=== PATIENT | male | born 1965 | race Caucasian/White ===

== ENCOUNTER 2022-09-29 15:20 | Inpatient (IN) ==
[2022-09-29] MEDS ORDERED: Levalbuterol 0.63MG/3ML NEB UNIT OF USE INH ONE (15:25)
[2022-09-29] MEDS ORDERED: Levalbuterol 1.25MG/0.5ML NEB.SOL ONE (15:25)
[2022-09-29] MEDS ORDERED: Levalbuterol 1.25MG/0.5ML NEB.SOL INH ONE (15:26)
[2022-09-29] MEDS ORDERED: methylPREDNISolone SOD SUCC 125 mg 2 ML VIAL IV ONE (15:27)
[2022-09-29] MEDS ORDERED: cefTRIAXone 1 gm/50 mL D5W 1 GM/50 ML BAG IV ONE (15:33)
[2022-09-29] MEDS ORDERED: Azithromycin 500 mg/250 ml NS 500 MG/250 ML BAG IVPB ONE (15:33)
[2022-09-29 16:04] LABS: PCO2 Arterial 50 mmHg (35-45); PO2 Arterial 234 mmHg (80-100)
[2022-09-29 16:13] LABS: ABS Basophils 0.1 10^3/uL (0.0-0.1); ABS Eosinophils 0.2 10^3/uL (0.0-0.5); ABS Lymphocytes 2.9 10^3/uL (1.0-4.8); ABS Monocytes 1.3 10^3/uL (0.0-1.1); ABS Neutrophils 13.9 10^3/uL (1.5-7.6); ABS Nucleated RBC 0.01 10^3/ul; Eosinophil % 0.8 %; Lymphocyte % 15.8 %; Mean Corpuscular Hgb Conc 31.3 g/dL (31-36); Mean Corpuscular Volume 76.8 fL (80-97); Mean Platelet Volume 7.6 fL (7.5-11.2); Platelet Count 368 10^3/uL (150-450); Red Blood Count 4.17 10^6/uL (4.06-5.63); Red Cell Distribution Width 16.6 % (12-17); White Blood Count 18.3 10^3/uL (3.6-10.2)
[2022-09-29 16:35] LABS: Activated Partial Thrombo Time 31.7 seconds (26.0-38.0); INR 2.05 (0.88-1.18)
[2022-09-29] MEDS ORDERED: Furosemide 40 mg/4 ml IV VIAL IV ONE (16:42)
[2022-09-29 17:05] LABS: Albumin 3.7 g/dL (3.2-5.2); Albumin/Globulin Ratio 1.4 (1-3); C Reactive Protein 102.69 mg/L (<8.01); Calcium 8.8 mg/dL (8.6-10.3); Creatinine, Serum 0.75 mg/dL (0.67-1.17); Globulin 2.6 g/dL (2-4); Potassium 4.2 mmol/L (3.5-5.0); Total Bilirubin 0.7 mg/dL (0.2-1.0); Total Protein 6.3 g/dL (6.4-8.9)
[2022-09-29] MEDS ORDERED: Morphine 4 MG/ML VIAL (1 ml) IV ONE (17:09)
[2022-09-29] MEDS ORDERED: Iodixanol (CONTRAST) 320 MG/ML 100 ML SDV IV ONE (17:16)
[2022-09-29 17:31] LABS: High Sensitivity Troponin 1 Hr 160 pg/mL (<20)
[2022-09-29] MEDS ORDERED: oxyCODONE/Acetamin 5/325 mg TAB PO ONE (18:03)
[2022-09-29 22:47] LABS: High Sensitivity Troponin 3 Hr 474 pg/mL (<20)
[2022-09-29] MEDS ORDERED: Heparin DRIP 25,000 UNITS BAG 25,000 UNITS/500 ML BAG IV SCH (23:00)
[2022-09-29] MEDS ORDERED: Heparin 5000 UNITS/ML 1 mL VIAL IV SCH (23:00)
[2022-09-29] MEDS: methylPREDNISolone SOD SUCC 40 mg/ml 1 ml VIAL IV SCH (23:01)
[2022-09-30] MEDS: Mometasone/Formoter 200/5 MDI INH SCH ×3 (01:23→20:19)
[2022-09-30] MEDS: oxyCODONE/Acetamin 5/325 mg TAB PO PRN ×3 (04:33→21:13)
[2022-09-30 04:45] LABS: ABS Lymphocytes 0.7 10^3/uL (1.0-4.8); ABS Monocytes 0.2 10^3/uL (0.0-1.1); ABS Neutrophils 8.5 10^3/uL (1.5-7.6); Hematocrit 31.2 % (38-53); Hemoglobin 10.3 g/dL (13.2-16.3); Lymphocyte % 7.8 %; Mean Corpuscular Hemoglobin 24.7 pg (27-33); Mean Corpuscular Hgb Conc 32.9 g/dL (31-36); Mean Corpuscular Volume 75.2 fL (80-97); Mean Platelet Volume 7.2 fL (7.5-11.2); Platelet Count 256 10^3/uL (150-450); Red Blood Count 4.15 10^6/uL (4.06-5.63); Red Cell Distribution Width 17.1 % (12-17); White Blood Count 9.4 10^3/uL (3.6-10.2)
[2022-09-30] MEDS ORDERED: Metoprolol Tartrate 5 mg VIAL 5 ml VIAL (1 mg/ml) ONE (05:02)
[2022-09-30] MEDS ORDERED: Metoprolol Tartrate 5 mg VIAL 5 ml VIAL (1 mg/ml) IV ONE ×3 (05:03→19:11)
[2022-09-30 05:30] LABS: Albumin 3.8 g/dL (3.2-5.2); Albumin/Globulin Ratio 1.4 (1-3); Creatinine, Serum 0.71 mg/dL (0.67-1.17); Globulin 2.7 g/dL (2-4); Magnesium 1.8 mg/dL (1.9-2.7); Potassium 3.9 mmol/L (3.5-5.0); Total Bilirubin 0.7 mg/dL (0.2-1.0); Total Protein 6.5 g/dL (6.4-8.9); eGFR CKD-EPI 105.7 (>60)
[2022-09-30 05:45] LABS: TSH Ultra Thyroid Stim Horm 0.88 mcIU/mL (0.34-5.60)
[2022-09-30] MEDS: SPIRIVA Respimat (tiotropium) 2.5 mcg/inh Inhaler INH SCH (07:27)
[2022-09-30] MEDS ORDERED: .Amiodarone 24HR ONLY IV Protocol Order Note IV ONE (07:35)
[2022-09-30] MEDS ORDERED: Amiodarone 150 mg IVPREMIX 150 MG/100 ML BAG IV ONE (07:35)
[2022-09-30] MEDS ORDERED: Digoxin IV 0.5 MG/2 ML AMP (0.25 MG/ML) IV SLOW PU ONE ×2 (07:35→16:00)
[2022-09-30] MEDS ORDERED: Dextrose 50% Syringe 50 ml 25 GM/50 ML SYRINGE IV PUSH PRN (07:39)
[2022-09-30] MEDS ORDERED: Amiodarone 360 MG IVPREMIX 360 MG/200 ML BAG IV SCH ×2 (07:50→13:50)
[2022-09-30] MEDS: methylPREDNISolone SOD SUCC 40 mg/ml 1 ml VIAL IV SCH ×2 (08:01→15:50)
[2022-09-30] MEDS: Morphine ER 30 mg TAB ** extended release PO SCH ×2 (08:21→17:18)
[2022-09-30] MEDS ORDERED: Iodixanol (CONTRAST) 320 MG/ML 100 ML SDV IV ONE (09:09)
[2022-09-30] MEDS ORDERED: Potassium Chlor 20 meq TAB.ER PO ONE (09:19)
[2022-09-30] MEDS ORDERED: Sulfur Hexaflouride MICROSPHR 25 MG VIAL ONE (12:45)
[2022-09-30] MEDS ORDERED: Magnesium Sulfate 2 gm BAG 2 GM/50 ML BAG IVPB ONE (12:50)
[2022-09-30] MEDS ORDERED: Morphine 2 MG/ML SYRINGE IV ONE (14:55)
[2022-09-30] MEDS: cefTRIAXone 1 gm/50 mL D5W 1 GM/50 ML BAG IV SCH (17:18)
[2022-09-30] MEDS ORDERED: Amiodarone 150 mg IVPREMIX 150 MG/100 ML BAG IV SCH (18:00)
[2022-09-30] MEDS ORDERED: Amiodarone 400 mg TAB PO SCH (21:00)
[2022-10-01] MEDS: methylPREDNISolone SOD SUCC 40 mg/ml 1 ml VIAL IV SCH ×3 (00:18→17:01)
[2022-10-01] MEDS: Morphine ER 30 mg TAB ** extended release PO SCH ×3 (00:18→17:01)
[2022-10-01 05:21] LABS: ABS Basophils 0.1 10^3/uL (0.0-0.1); ABS Lymphocytes 0.7 10^3/uL (1.0-4.8); ABS Monocytes 0.4 10^3/uL (0.0-1.1); ABS Neutrophils 17.8 10^3/uL (1.5-7.6); ABS Nucleated RBC 0.01 10^3/ul; Hematocrit 29.5 % (38-53); Hemoglobin 9.6 g/dL (13.2-16.3); Lymphocyte % 3.6 %; Mean Corpuscular Hemoglobin 24.4 pg (27-33); Mean Corpuscular Hgb Conc 32.6 g/dL (31-36); Mean Corpuscular Volume 74.6 fL (80-97); Mean Platelet Volume 7.3 fL (7.5-11.2); Platelet Count 269 10^3/uL (150-450); Red Blood Count 3.95 10^6/uL (4.06-5.63); Red Cell Distribution Width 17.3 % (12-17); White Blood Count 19.1 10^3/uL (3.6-10.2)
[2022-10-01 06:15] LABS: Albumin 3.5 g/dL (3.2-5.2); Albumin/Globulin Ratio 1.4 (1-3); Creatinine, Serum 0.68 mg/dL (0.67-1.17); Globulin 2.5 g/dL (2-4); Magnesium 2.1 mg/dL (1.9-2.7); Potassium 4.3 mmol/L (3.5-5.0); Total Bilirubin 0.4 mg/dL (0.2-1.0); eGFR CKD-EPI 107.1 (>60)
[2022-10-01] MEDS: oxyCODONE/Acetamin 5/325 mg TAB PO PRN ×3 (07:27→20:25)
[2022-10-01] MEDS: Mometasone/Formoter 200/5 MDI INH SCH ×2 (08:00→20:52)
[2022-10-01] MEDS: SPIRIVA Respimat (tiotropium) 2.5 mcg/inh Inhaler INH SCH (08:00)
[2022-10-01 08:40] LABS: Digoxin 1.3 ng/ml (0.8-2.0)
[2022-10-01] MEDS: Metoprolol Tartrate 5 mg VIAL 5 ml VIAL (1 mg/ml) IV PRN ×2 (09:00→09:13)
[2022-10-01 09:01] LABS: Ferritin 204.3 ng/mL (24-336)
[2022-10-01] MEDS ORDERED: Metoprolol Tartrate 5 mg VIAL 5 ml VIAL (1 mg/ml) IV PRN (09:11)
[2022-10-01] MEDS ORDERED: Metoprolol Tartrate 5 mg VIAL 5 ml VIAL (1 mg/ml) ONE (09:27)
[2022-10-01] MEDS: cefTRIAXone 1 gm/50 mL D5W 1 GM/50 ML BAG IV SCH (17:09)
[2022-10-01 17:30] LABS: Calcium 9.3 mg/dL (8.6-10.3); Creatinine, Serum 0.7 mg/dL (0.67-1.17); Magnesium 2.1 mg/dL (1.9-2.7); Potassium 3.9 mmol/L (3.5-5.0); eGFR CKD-EPI 106.1 (>60)
[2022-10-01 18:36] LABS: High Sensitivity Troponin 1 Hr 63 pg/mL (<20)
[2022-10-02] MEDS: Morphine ER 30 mg TAB ** extended release PO SCH ×4 (00:35→16:54)
[2022-10-02] MEDS: methylPREDNISolone SOD SUCC 40 mg/ml 1 ml VIAL IV SCH ×2 (00:35→09:52)
[2022-10-02] MEDS: oxyCODONE/Acetamin 5/325 mg TAB PO PRN ×3 (05:21→20:02)
[2022-10-02 05:51] LABS: Albumin 3.8 g/dL (3.2-5.2); Calcium 9.2 mg/dL (8.6-10.3); Creatinine, Serum 0.67 mg/dL (0.67-1.17); Potassium 4.3 mmol/L (3.5-5.0); Total Protein 6.6 g/dL (6.4-8.9); eGFR CKD-EPI 107.6 (>60)
[2022-10-02 05:52] LABS: Albumin/Globulin Ratio 1.4 (1-3); Globulin 2.8 g/dL (2-4); Total Bilirubin 0.5 mg/dL (0.2-1.0)
[2022-10-02 06:16] LABS: Digoxin 1.6 ng/ml (0.8-2.0)
[2022-10-02] MEDS: SPIRIVA Respimat (tiotropium) 2.5 mcg/inh Inhaler INH SCH (07:27)
[2022-10-02] MEDS: Mometasone/Formoter 200/5 MDI INH SCH ×2 (07:27→19:10)
[2022-10-02] MEDS ORDERED: Regadenoson 0.4 MG/5 ML SYRINGE ONE (07:38)
[2022-10-02] MEDS ORDERED: Aminophylline 25 MG/ML VIAL ONE (07:38)
[2022-10-02 07:57] LABS: Hematocrit 30.6 % (38-53); Hemoglobin 9.9 g/dL (13.2-16.3); Mean Corpuscular Hemoglobin 24.1 pg (27-33); Mean Corpuscular Hgb Conc 32.4 g/dL (31-36); Mean Corpuscular Volume 74.2 fL (80-97); Mean Platelet Volume 7.2 fL (7.5-11.2); Platelet Count 295 10^3/uL (150-450); Red Blood Count 4.12 10^6/uL (4.06-5.63); Red Cell Distribution Width 17.1 % (12-17); White Blood Count 17.2 10^3/uL (3.6-10.2)
[2022-10-02 07:58] LABS: ABS Lymphocytes 0.7 10^3/uL (1.0-4.8); ABS Monocytes 0.3 10^3/uL (0.0-1.1); ABS Neutrophils 16.2 10^3/uL (1.5-7.6)
[2022-10-02] MEDS ORDERED: Propofol 10 MG/ML 20 ML BTL ONE (10:55)
[2022-10-02] MEDS ORDERED: Lidocaine 1% MPF 2 ML VIAL ONE (10:55)
[2022-10-02] MEDS: cefTRIAXone 1 gm/50 mL D5W 1 GM/50 ML BAG IV SCH (16:53)
[2022-10-03] MEDS: Morphine ER 30 mg TAB ** extended release PO SCH ×2 (00:35→08:38)
[2022-10-03 05:40] LABS: ABS Lymphocytes 0.6 10^3/uL (1.0-4.8); ABS Monocytes 0.5 10^3/uL (0.0-1.1); ABS Neutrophils 11.5 10^3/uL (1.5-7.6); ABS Nucleated RBC 0.01 10^3/ul; Hematocrit 29.7 % (38-53); Hemoglobin 9.7 g/dL (13.2-16.3); Lymphocyte % 4.8 %; Mean Corpuscular Hemoglobin 24.7 pg (27-33); Mean Corpuscular Hgb Conc 32.8 g/dL (31-36); Mean Corpuscular Volume 75.3 fL (80-97); Mean Platelet Volume 7.2 fL (7.5-11.2); Platelet Count 272 10^3/uL (150-450); Red Blood Count 3.94 10^6/uL (4.06-5.63); White Blood Count 12.6 10^3/uL (3.6-10.2)
[2022-10-03 05:57] LABS: Albumin 3.5 g/dL (3.2-5.2); Albumin/Globulin Ratio 1.4 (1-3); Calcium 8.9 mg/dL (8.6-10.3); Creatinine, Serum 0.71 mg/dL (0.67-1.17); Globulin 2.5 g/dL (2-4); Potassium 3.9 mmol/L (3.5-5.0); Total Bilirubin 0.4 mg/dL (0.2-1.0); eGFR CKD-EPI 105.7 (>60)
[2022-10-03 06:13] LABS: Digoxin 1.9 ng/ml (0.8-2.0)
[2022-10-03] MEDS ORDERED: Potassium Chlor 20 meq TAB.ER PO ONE (07:29)
[2022-10-03] MEDS: SPIRIVA Respimat (tiotropium) 2.5 mcg/inh Inhaler INH SCH (07:53)
[2022-10-03] MEDS: Mometasone/Formoter 200/5 MDI INH SCH (07:53)
[2022-10-03 12:31] VITALS: BP 134/81
== END 2022-10-03 14:35 | disposition home or self-care (01) | DRG 189 ==
LOC: ED 15:20 → EDHOLD 17:59 → ICU 18:33
PROVIDERS: ADMIT Internal Medicine; ATTEND Internal Medicine
PROC: CARDVER (ICD-10-PCS; 2022-10-02 11:15)

== ENCOUNTER 2022-12-09 17:25 | Inpatient (IN) ==
[2022-12-09] MEDS ORDERED: Albuterol 2.5mg/3 ml (0.083%) NEB.SOLN INH ONE ×2 (18:15→22:55)
[2022-12-09 19:36] LABS: ABS Basophils 0.1 10^3/uL (0.0-0.1); ABS Lymphocytes 0.9 10^3/uL (1.0-4.8); ABS Monocytes 1.1 10^3/uL (0.0-1.1); ABS Neutrophils 16.7 10^3/uL (1.5-7.6); ABS Nucleated RBC 0.01 10^3/ul; Hematocrit 33.4 % (38-53); Hemoglobin 11.1 g/dL (13.2-16.3); Mean Corpuscular Hemoglobin 27.2 pg (27-33); Mean Corpuscular Hgb Conc 33.3 g/dL (31-36); Mean Corpuscular Volume 81.8 fL (80-97); Mean Platelet Volume 7.2 fL (7.5-11.2); Platelet Count 337 10^3/uL (150-450); Red Blood Count 4.08 10^6/uL (4.06-5.63); Red Cell Distribution Width 20.9 % (12-17); White Blood Count 18.8 10^3/uL (3.6-10.2)
[2022-12-09 19:55] LABS: Albumin 3.8 g/dL (3.2-5.2); Albumin/Globulin Ratio 1.2 (1-3); Calcium 9.9 mg/dL (8.6-10.3); Creatinine, Serum 0.97 mg/dL (0.67-1.17); Globulin 3.2 g/dL (2-4); Potassium 3.6 mmol/L (3.5-5.0); Total Bilirubin 0.9 mg/dL (0.2-1.0); eGFR CKD-EPI 89.9 (>60)
[2022-12-09 20:03] LABS: Digoxin 1.8 ng/ml (0.8-2.0)
[2022-12-09] MEDS ORDERED: Iodixanol (CONTRAST) 320 MG/ML 100 ML SDV IV ONE (20:21)
[2022-12-09] MEDS ORDERED: Morphine ER 30 mg TAB ** extended release PO ONE (20:28)
[2022-12-09] MEDS ORDERED: oxyCODONE/Acetamin 5/325 mg TAB PO ONE (20:28)
[2022-12-09 21:02] LABS: High Sensitivity Troponin 1 Hr 87 pg/mL (<20)
[2022-12-10] MEDS ORDERED: Magnesium Hydroxide LIQ 30 ML UDC PO PRN (03:39)
[2022-12-10] MEDS ORDERED: Senna TAB 8.6 mg TAB PO PRN (03:39)
[2022-12-10] MEDS ORDERED: Polyethylene Glycol 3350 17 GM PACKET PO PRN (03:39)
[2022-12-10 04:58] LABS: TSH Ultra Thyroid Stim Horm 2.07 mcIU/mL (0.34-5.60)
[2022-12-10] MEDS ORDERED: Mometasone/Formoter 200/5 MDI INH SCH (07:00)
[2022-12-10] MEDS ORDERED: Albuterol/Ipratropium NEB.SOL (2.5/0.5 MG) 3 ML NEB.SOLN INH ONE (08:36)
[2022-12-10] MEDS ORDERED: Albuterol/Ipratropium NEB.SOL (2.5/0.5 MG) 3 ML NEB.SOLN ONE (08:36)
[2022-12-10] MEDS ORDERED: SPIRIVA Respimat (tiotropium) 2.5 mcg/inh Inhaler INH SCH (09:00)
[2022-12-10] MEDS ORDERED: Ipratropium HFA INHALER(NF) (ALTERNATIVE = NEBS) INH SCH (09:00)
[2022-12-10] MEDS ORDERED: Albuterol/Ipratropium NEB.SOL (2.5/0.5 MG) 3 ML NEB.SOLN INH PRN (09:41)
[2022-12-10] MEDS ORDERED: Albuterol HFA INHALER 8 gm MDI INH PRN (09:41)
[2022-12-10] MEDS ORDERED: Dextrose 50% Syringe 50 ml 25 GM/50 ML SYRINGE IV PUSH PRN (09:48)
[2022-12-10] MEDS ORDERED: Furosemide 20 mg/2 ml IV VIAL ONE (10:24)
[2022-12-10] MEDS: Morphine ER 30 mg TAB ** extended release PO SCH ×3 (10:24→21:18)
[2022-12-10] MEDS ORDERED: Sulfur Hexaflouride MICROSPHR 25 MG VIAL ONE (12:26)
[2022-12-10] MEDS: methylPREDNISolone SOD SUCC 40 mg/ml 1 ml VIAL IV SCH (12:31)
[2022-12-10] MEDS: Albuterol/Ipratropium NEB.SOL (2.5/0.5 MG) 3 ML NEB.SOLN INH SCH ×3 (12:54→20:01)
[2022-12-10] MEDS: oxyCODONE/Acetamin 5/325 mg TAB PO PRN (13:04)
[2022-12-10] MEDS ORDERED: Potassium Chlor 20 meq TAB.ER PO ONE (16:36)
[2022-12-10] MEDS: Famotidine IV 10 MG/ML 2 ml VIAL (20 mg) IV SLOW PU SCH (21:18)
[2022-12-11] MEDS: oxyCODONE/Acetamin 5/325 mg TAB PO PRN ×2 (00:24→19:41)
[2022-12-11] MEDS: Albuterol/Ipratropium NEB.SOL (2.5/0.5 MG) 3 ML NEB.SOLN INH SCH ×7 (01:08→23:24)
[2022-12-11 05:34] LABS: ABS Lymphocytes 0.9 10^3/uL (1.0-4.8); ABS Monocytes 0.8 10^3/uL (0.0-1.1); ABS Neutrophils 10.5 10^3/uL (1.5-7.6); ABS Nucleated RBC 0.01 10^3/ul; Hematocrit 30.3 % (38-53); Hemoglobin 10.1 g/dL (13.2-16.3); Lymphocyte % 7.7 %; Mean Corpuscular Hemoglobin 27.3 pg (27-33); Mean Corpuscular Hgb Conc 33.4 g/dL (31-36); Mean Corpuscular Volume 81.8 fL (80-97); Mean Platelet Volume 7.2 fL (7.5-11.2); Nucleated Red Blood Cells % 0.1 /100 WBC (0.0-0.4); Platelet Count 267 10^3/uL (150-450); Red Blood Count 3.71 10^6/uL (4.06-5.63); Red Cell Distribution Width 21.4 % (12-17); White Blood Count 12.3 10^3/uL (3.6-10.2)
[2022-12-11 05:52] LABS: Albumin 3.2 g/dL (3.2-5.2); Albumin/Globulin Ratio 1.1 (1-3); Calcium 9.3 mg/dL (8.6-10.3); Creatinine, Serum 0.66 mg/dL (0.67-1.17); Potassium 3.9 mmol/L (3.5-5.0); Total Bilirubin 0.5 mg/dL (0.2-1.0); Total Protein 6.2 g/dL (6.4-8.9)
[2022-12-11] MEDS: Morphine ER 30 mg TAB ** extended release PO SCH ×3 (08:33→21:39)
[2022-12-11] MEDS: methylPREDNISolone SOD SUCC 40 mg/ml 1 ml VIAL IV SCH (08:34)
[2022-12-11] MEDS: Famotidine IV 10 MG/ML 2 ml VIAL (20 mg) IV SLOW PU SCH ×2 (08:34→21:39)
[2022-12-11] MEDS ORDERED: Potassium EFFERVES 25 meq TAB PO ONE (08:49)
[2022-12-11] MEDS ORDERED: Albuterol/Ipratropium NEB.SOL (2.5/0.5 MG) 3 ML NEB.SOLN INH SCH (13:00)
[2022-12-12] MEDS: Albuterol/Ipratropium NEB.SOL (2.5/0.5 MG) 3 ML NEB.SOLN INH SCH ×5 (03:58→19:42)
[2022-12-12] MEDS: oxyCODONE/Acetamin 5/325 mg TAB PO PRN ×3 (05:20→14:14)
[2022-12-12 05:22] LABS: Hematocrit 32.2 % (38-53); Hemoglobin 10.7 g/dL (13.2-16.3); Mean Corpuscular Hemoglobin 27.7 pg (27-33); Mean Corpuscular Hgb Conc 33.3 g/dL (31-36); Mean Corpuscular Volume 83.1 fL (80-97); Mean Platelet Volume 7.1 fL (7.5-11.2); Platelet Count 325 10^3/uL (150-450); Red Blood Count 3.87 10^6/uL (4.06-5.63); Red Cell Distribution Width 21.6 % (12-17); White Blood Count 15.7 10^3/uL (3.6-10.2)
[2022-12-12 05:37] LABS: Albumin 3.4 g/dL (3.2-5.2); Albumin/Globulin Ratio 1.1 (1-3); Calcium 9.7 mg/dL (8.6-10.3); Creatinine, Serum 0.74 mg/dL (0.67-1.17); Magnesium 2.1 mg/dL (1.9-2.7); Potassium 4.1 mmol/L (3.5-5.0); Total Bilirubin 0.5 mg/dL (0.2-1.0); Total Protein 6.4 g/dL (6.4-8.9); eGFR CKD-EPI 104.4 (>60)
[2022-12-12 06:12] LABS: ABS Basophils 0.1 10^3/uL (0.0-0.1); ABS Lymphocytes 1.2 10^3/uL (1.0-4.8); ABS Monocytes 0.8 10^3/uL (0.0-1.1); ABS Neutrophils 13.6 10^3/uL (1.5-7.6); ABS Nucleated RBC 0.01 10^3/ul; Eosinophil % 0.2 %; Lymphocyte % 7.7 %; Nucleated Red Blood Cells % 0.1 /100 WBC (0.0-0.4)
[2022-12-12 07:03] LABS: PCO2 Arterial 44 mmHg (35-45); PO2 Arterial 98 mmHg (80-100)
[2022-12-12] MEDS: Famotidine IV 10 MG/ML 2 ml VIAL (20 mg) IV SLOW PU SCH (08:18)
[2022-12-12] MEDS: methylPREDNISolone SOD SUCC 40 mg/ml 1 ml VIAL IV SCH (08:18)
[2022-12-12] MEDS: Morphine ER 30 mg TAB ** extended release PO SCH ×2 (08:19→14:14)
[2022-12-12 15:01] VITALS: BP 143/92
== END 2022-12-12 18:15 | disposition home or self-care (01) | DRG 189 ==
LOC: EDHOLD 17:25 → ED 17:25 → SUATTDRO 12-10 03:39 → MEDTELE 12-10 07:33 → ICU 12-10 08:44 → SUATTDRO 12-10 08:45
PROVIDERS: ADMIT Internal Medicine; ATTEND Student in an Organized Health Care Education/Training Program

== ENCOUNTER 2022-12-22 17:07 | Inpatient (IN) ==
[2022-12-22] MEDS ORDERED: Rocuronium 50 mg VIAL 10 mg/ml 5 ml VIAL (50 mg) ONE (17:24)
[2022-12-22] MEDS ORDERED: Succinylcholine 200 mg VIAL 20 mg/ml 10 ml VIAL (200 mg) ONE (17:25)
[2022-12-22] MEDS ORDERED: Oxymetazoline 0.05% NASAL SPR 15 ML BTL ONE (17:32)
[2022-12-22 18:09] LABS: ABS Basophils 0.1 10^3/uL (0.0-0.1); ABS Lymphocytes 2.9 10^3/uL (1.0-4.8); ABS Monocytes 0.8 10^3/uL (0.0-1.1); ABS Neutrophils 19.3 10^3/uL (1.5-7.6); ABS Nucleated RBC 0.01 10^3/ul; Hematocrit 36.3 % (38-53); Lymphocyte % 12.6 %; Mean Corpuscular Hemoglobin 28.4 pg (27-33); Mean Corpuscular Volume 85.9 fL (80-97); Mean Platelet Volume 8.3 fL (7.5-11.2); Platelet Count 502 10^3/uL (150-450); Red Blood Count 4.22 10^6/uL (4.06-5.63); Red Cell Distribution Width 20.6 % (12-17); White Blood Count 23.1 10^3/uL (3.6-10.2)
[2022-12-22 18:27] LABS: High Sens Troponin Baseline 42 pg/mL (<20)
[2022-12-22 18:34] LABS: ALT 39 U/L (7-52); AST 18 U/L (13-39); Albumin 4.2 g/dL (3.2-5.2); Albumin/Globulin Ratio 1.1 (1-3); Alkaline Phosphatase 107 U/L (35-149); Anion Gap 13 mmol/L (2-16); Blood Urea Nitrogen 21 mg/dL (6-24); C Reactive Protein 135.69 mg/L (<8.01); CO2 Carbon Dioxide 27 mmol/L (22-32); Calcium 10.3 mg/dL (8.6-10.3); Chloride 96 mmol/L (101-111); Creatinine, Serum 0.84 mg/dL (0.67-1.17); Globulin 3.8 g/dL (2-4); Glucose 223 mg/dL (70-100); Lipase < 10 U/L (11.0-82.0); Magnesium 1.9 mg/dL (1.9-2.7); Phosphorus 4.9 mg/dL (2.5-5.0); Potassium 4.6 mmol/L (3.5-5.0); Sodium 136 mmol/L (135-145); eGFR CKD-EPI 100.5 (>60)
[2022-12-22 18:56] LABS: High Sensitivity Troponin 1 Hr 40 pg/mL (<20)
[2022-12-22] MEDS ORDERED: Iodixanol (CONTRAST) 320 MG/ML 100 ML SDV IV ONE (19:47)
[2022-12-22 20:43] LABS: Urine Appearance Cloudy; Urine Bilirubin Negative (Negative); Urine Blood Negative (Negative); Urine Color Yellow; Urine Glucose Negative (Negative); Urine Ketones Negative (Negative); Urine Nitrite Negative (Negative); Urine Protein 1+(30 mg/dL) (Negative); Urine Specific Gravity 1.025 (1.002-1.030); Urine Urobilinogen Negative (Negative)
[2022-12-22 20:47] LABS: Urine Bacteria Absent (Absent); Urine Red Blood Cell Trace(0-2/hpf) (Absent); Urine White Blood Cell Trace(0-5/hpf) (Absent)
[2022-12-22] MEDS ORDERED: Albuterol 2.5mg/3 ml (0.083%) NEB.SOLN INH ONE (23:04)
[2022-12-23] MEDS ORDERED: Lactated Ringers 1000 ml BAG 1,000 ML IV ONE (01:14)
[2022-12-23] MEDS ORDERED: Polyethylene Glycol 3350 17 GM PACKET PO PRN (01:19)
[2022-12-23] MEDS ORDERED: Acetaminophen IV 1 GM/100ML 1,000 MG/100 ML BAG IV PRN (01:19)
[2022-12-23] MEDS ORDERED: Magnesium Hydroxide LIQ 30 ML UDC PO PRN (01:35)
[2022-12-23] MEDS ORDERED: Albuterol HFA INHALER 8 gm MDI INH PRN ×2 (01:35→03:18)
[2022-12-23] MEDS ORDERED: Albuterol/Ipratropium NEB.SOL (2.5/0.5 MG) 3 ML NEB.SOLN INH PRN (01:41)
[2022-12-23] MEDS ORDERED: Albuterol 2.5mg/3 ml (0.083%) NEB.SOLN INH ONE (03:18)
[2022-12-23] MEDS ORDERED: Morphine ER 30 mg TAB ** extended release PO ONE ×2 (03:23)
[2022-12-23] MEDS ORDERED: Cefepime 2 GM in Dextrose 2 GM/50 ML BAG IV ONE (04:21)
[2022-12-23 04:28] LABS: ABS Basophils 0.1 10^3/uL (0.0-0.1); ABS Lymphocytes 1.2 10^3/uL (1.0-4.8); ABS Monocytes 0.9 10^3/uL (0.0-1.1); ABS Neutrophils 9.5 10^3/uL (1.5-7.6); Eosinophil % 0.2 %; Hematocrit 27.7 % (38-53); Hemoglobin 9.2 g/dL (13.2-16.3); Lymphocyte % 10.3 %; Mean Corpuscular Hemoglobin 28.2 pg (27-33); Mean Corpuscular Hgb Conc 33.2 g/dL (31-36); Mean Corpuscular Volume 85.1 fL (80-97); Mean Platelet Volume 7.2 fL (7.5-11.2); Platelet Count 280 10^3/uL (150-450); Red Blood Count 3.26 10^6/uL (4.06-5.63); Red Cell Distribution Width 20.4 % (12-17); White Blood Count 11.7 10^3/uL (3.6-10.2)
[2022-12-23 04:42] LABS: Albumin 3.1 g/dL (3.2-5.2); Albumin/Globulin Ratio 1.2 (1-3); Calcium 8.9 mg/dL (8.6-10.3); Creatinine, Serum 0.72 mg/dL (0.67-1.17); Globulin 2.5 g/dL (2-4); Magnesium 1.6 mg/dL (1.9-2.7); Potassium 3.7 mmol/L (3.5-5.0); Total Bilirubin 0.6 mg/dL (0.2-1.0); Total Protein 5.6 g/dL (6.4-8.9); eGFR CKD-EPI 105.2 (>60)
[2022-12-23] MEDS ORDERED: Magnesium Sulfate 2 gm BAG 2 GM/50 ML BAG IVPB ONE (05:10)
[2022-12-23] MEDS ORDERED: Azithromycin 500 mg/250 ml NS 500 MG/250 ML BAG IVPB SCH (06:00)
[2022-12-23] MEDS ORDERED: Mometasone/Formoter 200/5 MDI INH SCH (07:00)
[2022-12-23] MEDS ORDERED: SPIRIVA Respimat (tiotropium) 2.5 mcg/inh Inhaler INH SCH (09:00)
[2022-12-23] MEDS ORDERED: Ipratropium HFA INHALER(NF) (ALTERNATIVE = NEBS) INH SCH (09:00)
[2022-12-23] MEDS: Morphine ER 30 mg TAB ** extended release PO SCH ×2 (09:31→14:18)
[2022-12-23] MEDS ORDERED: Tranexamic Acid 1,000 MG/10 ML SDV INH ONE (10:15)
[2022-12-23] MEDS ORDERED: Tranexamic Acid 1,000 MG/10 ML SDV ONE (10:22)
[2022-12-23] MEDS ORDERED: Etomidate 40 mg/20 ml (2 MG/ML) 20 ml VIAL (40 mg) ONE (10:33)
[2022-12-23] MEDS ORDERED: Rocuronium 50 mg VIAL 10 mg/ml 5 ml VIAL (50 mg) ONE (10:34)
[2022-12-23] MEDS ORDERED: Propofol 10 mg/ml 100 ML BTL 1,000 MG/100 ML BTL ONE (10:36)
[2022-12-23] MEDS ORDERED: fentaNYL 100 mcg/2 ml 50 MCG/ML VIAL ONE ×2 (10:36→11:48)
[2022-12-23] MEDS ORDERED: fentaNYL 100 mcg/2 ml 50 MCG/ML VIAL IV SLOW PU ONE ×3 (10:38→13:26)
[2022-12-23] MEDS: Etomidate 20 mg/10 ml 2 MG/ML 10 ml VIAL IV ONE ×2 (10:40→12:08)
[2022-12-23] MEDS: Propofol 10 mg/ml 100 ML BTL 1,000 MG/100 ML BTL IV SCH ×2 (10:42→14:29)
[2022-12-23] MEDS ORDERED: Rocuronium 50 mg VIAL 10 mg/ml 5 ml VIAL (50 mg) IV ONE (10:46)
[2022-12-23] MEDS ORDERED: Pantoprazole VIAL 40 MG VIAL IV SCH (11:00)
[2022-12-23 11:54] LABS: HDL Cholesterol 47.1 mg/dL
[2022-12-23] MEDS ORDERED: fentaNYL INFUSION 50 mcg/mL VL 2,500 MCG/50 ML VIAL IV SCH (12:00)
[2022-12-23] MEDS ORDERED: Cefepime 2 GM in Dextrose 2 GM/50 ML BAG IV SCH (13:00)
[2022-12-23] MEDS: Chlorhexidine MOUTHWASH 0.12% 15 ML UDC TOPICAL SCH ×2 (13:47→14:18)
[2022-12-23 13:58] LABS: Resp Rate 15
[2022-12-23 14:03] LABS: PCO2 Arterial 43 mmHg (35-45); PO2 Arterial 94 mmHg (80-100)
[2022-12-23 16:07] VITALS: BP 102/76
[2022-12-23] MEDS ORDERED: Senna TAB 8.6 mg TAB PO SCH (21:00)
== END 2022-12-23 16:00 | disposition short-term general hospital (02) | DRG 871 ==
LOC: ED 17:07 → EDHOLD 12-23 01:19 → SUATTDRO 12-23 01:19 → EDHOLD 12-23 12:58 → ICU 12-23 13:35
PROVIDERS: ADMIT Internal Medicine; ATTEND Internal Medicine